=== PATIENT | female | born 1940 | race Caucasian/White ===

== ENCOUNTER 2017-04-28 20:57 | Observation (INO) | payer OTHER, MEDICARE ==
[2017-04-28] MEDS ORDERED: NS 1,000 ML IV ONE (21:06)
[2017-04-28] MEDS ORDERED: IOPAMIDOL (ISOVUE 370) 100 ML BTL IV ONE (21:09)
--- NOTE | 2017-04-28 21:10 | EDPHY ---
H & P Time Seen by Provider: 04/28/17 20:59 HPI/ROS: CHIEF COMPLAINT: TIA HISTORY OF PRESENT ILLNESS: Patient is a 77-year-old female who comes to the emergency department complaining of TIA symptoms. She was with her daughter in the kitchen at 7:40 p.m. when she started to feel funny. Her daughter noticed that her left-sided face was drooping and she had slurred speech. The patient denies having any weakness in her arms or legs. She denies chest pain or shortness of breath. She has no significant past medical history other than mild bradycardia. She does not take any medications. No recent trauma. No recent infectious symptoms. REVIEW OF SYSTEMS: Constitutional: denies: chills, fever, recent illness, recent injury EENTM: denies: blurred vision, double vision, nose congestion Respiratory: denies: cough, shortness of breath Cardiac: denies: chest pain, irregular heart rate, lightheadedness, palpitations Gastrointestinal/Abdominal: denies: abdominal pain, diarrhea, nausea, vomiting, blood streaked stools Genitourinary: denies: dysuria, frequency, hematuria, pain Musculoskeletal: denies: joint pain, muscle pain Skin: denies: lesions, rash, jaundice, bruising Neurological: See HPI Hematologic/Lymphatic: denies: blood clots, easy bleeding, easy bruising Immunologic/allergic: denies: HIV/AIDS, transplant - Physical Exam General Appearance: WD/WN, mild distress Eyes, Ears, Nose, Throat Exam: PERRL/EOMI, normal ENT inspection, pharynx normal Neck: non-tender, full range of motion, supple, normal inspection. No: stiff neck, tender lateral Cardiovascular/Chest: normal peripheral pulses, regular rate, rhythm Respiratory: chest non-tender, lungs clear, normal breath sounds. No: crackles , rhonchi Gastrointestinal/Abdominal: normal bowel sounds, non tender, soft Back Exam: normal inspection Extremity: normal range of motion, non-tender, normal inspection Mental Status: alert, oriented x 3 CN's Exam: normal hearing, normal speech, PERRL, normal eye position, normal gag reflex, normal pupil position, normal speech. No: facial asymmetry, facial droop, facial paresthesias, gaze palsy, tongue deviation to R, tongue deviation to L Coordination/Gait: normal finger to nose, normal gait Motor/Sensory: normal. No: motor deficit, sensory deficit, pronator drift (R), pronator drift (L), weak motor strength RUE, weak motor strength LUE, weak motor strength RLE, weak motor strength LLE NIH stroke score 0 DTR: tricep (R): 2+, tricep (L): 2+, knee (R): 2+, knee (L): 2+ Skin Exam: warm/dry, normal color Lymphatic: no adenopathy Source: Patient Exam Limitations: No limitations - Medical/Surgical History Hx Asthma: No Hx Chronic Respiratory Disease: No Hx Diabetes: No Hx Cardiac Disease: No Hx Renal Disease: No Hx Cirrhosis: No Hx Alcoholism: No Hx HIV/AIDS: No Other PMH: Chronic bradycardia - Family History Significant Family History: No pertinent family hx - Social History Smoking Status: Never smoked Alcohol Use: Sober Drug Use: None Constitutional: Initial Vital Signs Temperature (C) 36.7 C 04/28/17 21:08 Heart Rate 56 L 04/28/17 21:08 Respiratory Rate 15 04/28/17 21:08 Blood Pressure 168/72 H 04/28/17 21:08 O2 Sat (%) 97 04/28/17 21:08 O2 Delivery Mode Room Air Allergies/Adverse Reactions: Sulfa (Sulfonamide Antibiotics) Allergy (Verified 04/29/17 10:43) Itching Home Medications: Medication Instructions Recorded Denosumab [Prolia] 60 mg SQ Q6M 04/28/17 Acetaminophen [Tylenol 325mg (*)] 650 mg PO Q4HRS PRN tab 04/29/17 Aspirin EC [Aspirin EC 81 mg (*)] 81 mg PO DAILY tab 04/29/17 Atorvastatin Calcium [Lipitor 10 10 mg PO DAILY #30 tab 04/29/17 mg (*)] Herbals/Supplements -Info Only 1 ea PO DAILY 04/29/17 Medical Decision Making - Diagnostics Imaging Results: Imaging Impressions Brain MRI 04/28/17 22:48 Impression: Negative. No acute intracranial hemorrhage or ischemia. The study was performed as an emergency on-call case and discussed by telephone with Dr. Garcia at 1:00 AM . The final interpretation is concordant with the original communication. Imaging: Discussed imaging studies w/ weight caller Radiologist ED Course/Re-evaluation: We discussed the CT and lab results. The patient and are reassured. I recommended admission. The patient was ready anxious about this. She is also very anxious about the MRI. helped calm her down and she agreed. I spoke with Dr. Sahu who will admit. Differential Diagnosis: Partial list of the Differential diagnosis considered include but were not limited to; TIA, anxiety, and although unlikely based on the history and physical exam, I also considered infection, dissection, tumor, acute coronary disease. - Data Points Laboratory Results: Laboratory Results 04/28/17 21:06 04/28/17 21:06 Medications Given: Discontinued Medications Aspirin Buffered (Aspirin Ec) 81 mg PO DAILY [facility] Stop: 10/26/17 08:59 Last Admin: 04/29/17 09:35 Dose: 81 mg Atorvastatin Calcium (Lipitor) 40 mg PO DAILY [facility] Stop: 10/26/17 08:59 Last Admin: 04/29/17 09:35 Dose: 40 mg Sodium Chloride (Ns) 1,000 mls @ 0 mls/hr IV ONCE ONE; Wide Open PRN Reason: Protocol Stop: 04/28/17 21:07 Last Admin: 04/28/17 21:21 Dose: 1,000 mls Lorazepam (Ativan) 0.5 - 1 mg PO ONCE PRN PRN Reason: Anxiety Stop: 10/25/17 23:12 Last Admin: 04/28/17 23:24 Dose: 0.5 mg Lorazepam (Ativan Injection) 0.5 mg IVP EDNOW ONE Stop: 04/28/17 23:54 Last Admin: 04/28/17 23:54 Dose: 0.5 mg Departure - Departure Disposition: [facility] Inpatient Acute Clinical Impression: TIA (transient ischemic attack) Qualifiers: Transient cerebral ischemia type: unspecified Qualified Code(s): G45.9 - Transient cerebral ischemic attack, unspecified Condition: Fair
[2017-04-28 21:20] LABS: % IMMATURE GRANULYOCYTES 0.3 % (0.0-1.1); ABSOLUTE IMMATURE GRANULOCYTES 0.02 10^3/uL (0.00-0.10); ADD DIFF? NO; ADD MORPH? NO; ADD SCAN? NO; ATYPICAL LYMPHOCYTE FLAG 10 (0-99); FRAGMENT RBC FLAG 0 (0-99); HEMATOCRIT 42.3 % (38.0-47.0); HEMOGLOBIN 14.4 g/dL (12.6-16.3); LEFT SHIFT FLG 0 (0-99); LIPEMIA HEMOLYSIS FLAG 90 (0-99); MEAN PLATELET VOLUME 9.1 fL (8.7-11.7); PLATELET CLUMPS FLAG 0 (0-99); PLATELET COUNT 185 10^3/uL (150-400); RED CELL DISTRIBUTION WIDTH 11.9 % (11.5-15.2)
[2017-04-28 21:25] LABS: ANION GAP 11 mEq/L (8-16); CALCIUM 9.4 mg/dL (8.5-10.4); CARBON DIOXIDE 25 mEq/l (22-31); CHLORIDE 102 mEq/L (97-110); CREATININE 0.8 mg/dL (0.6-1.0); GLOMERULAR FILTRATION RATE > 60; GLUCOSE 127 mg/dL (70-100); POTASSIUM 3.9 mEq/L (3.5-5.2); SODIUM 138 mEq/L (134-144)
[2017-04-28 21:33] LABS: COLOR YELLOW; LEUKOCYTE ESTERASE,URINE NEGATIVE (NEGATIVE); NITRITE,URINE NEGATIVE (NEGATIVE)
[2017-04-28 21:41] LABS: AMORPHOUS PRESENT /hpf (NONE-1+); MUCUS TRACE /lpf (NONE-1+)
[2017-04-28] MEDS ORDERED: ACETAMINOPHEN 325 MG TAB PO PRN (22:50)
[2017-04-28] MEDS ORDERED: ONDANSETRON 4 MG/2 ML VIAL IVP PRN (22:50)
[2017-04-28] MEDS ORDERED: ONDANSETRON DISINTEGRATING 4 MG TAB PO PRN (22:50)
[2017-04-28] MEDS ORDERED: LORazepam 0.5 MG TAB PO PRN (23:13)
--- NOTE | 2017-04-28 23:28 | PDGENHP ---
History and Physical - Chief Complaint TIA - History of Present Illness 77 yo F w/ osteoporosis presents after episode of confusion and facial droop. Patient was standing in the kitchen around 7:30 PM when she had sudden onset confusion. Per family who was present she exhibited a left facial droop and slurred speech. At this point the called EMS. By the time she had arrived at the ED her symptoms had resolved. She was symptom free with a NIHSS of 0 at the time of my evaluation. History Information - Allergies/Home Medication List Allergies/Adverse Reactions: Sulfa (Sulfonamide Antibiotics) Allergy (Verified 04/28/17 21:10) Home Medications: Prolia 04/28/17 [Last Taken Unknown] I have personally reviewed and updated: family history, medical history - Past Medical History osteoporosis - Family History Positive for: cancer - Social History Smoking Status: Never smoked Alcohol Use: Sober Drug Use: None Review of Systems Review of Systems: ROS: 10pt was reviewed & negative except for what was stated in HPI & below Physical Exam Physical Exam: Temp Pulse Resp BP Pulse Ox 36.7 C 52 L 16 155/62 H 95 04/28/17 21:08 04/28/17 23:21 04/28/17 23:21 04/28/17 23:21 04/28/17 23:21 Constitutional: no apparent distress, not in pain Eyes: PERRL, EOMI Ears, Nose, Mouth, Throat: moist mucous membranes, no oral mucosal ulcers Cardiovascular: regular rate and rhythym, no murmur, rub, or gallop Respiratory: no respiratory distress, no rales or rhonchi Gastrointestinal: normoactive bowel sounds, soft, non-tender abdomen Skin: warm, normal color Musculoskeletal: full muscle strength, no muscle tenderness Neurologic: AAOx3, sensation intact bilaterally, CN II-XII Intact, other (NIHSS 0), No weakness, No numbness, No pronator drift, No facial droop Psychiatric: interacting appropriately, not anxious Lab Data & Imaging Review 04/28/17 21:06 04/28/17 21:06 WBC 6.06 10^3/uL (3.80-9.50) 04/28/17 21:06 RBC 4.50 10^6/uL (4.18-5.33) 04/28/17 21:06 Hgb 14.4 g/dL (12.6-16.3) 04/28/17 21:06 Hct 42.3 % (38.0-47.0) 04/28/17 21:06 MCV 94.0 fL (81.5-99.8) 04/28/17 21:06 MCH 32.0 pg (27.9-34.1) 04/28/17 21:06 MCHC 34.0 g/dL (32.4-36.7) 04/28/17 21:06 RDW 11.9 % (11.5-15.2) 04/28/17 21:06 Plt Count 185 10^3/uL (150-400) 04/28/17 21:06 MPV 9.1 fL (8.7-11.7) 04/28/17 21:06 Neut % (Auto) 43.4 % (39.3-74.2) 04/28/17 21:06 Lymph % (Auto) 43.6 % (15.0-45.0) 04/28/17 21:06 [place] % (Auto) 8.6 % (4.5-13.0) 04/28/17 21:06 Eos % (Auto) 3.8 % (0.6-7.6) 04/28/17 21:06 Baso % (Auto) 0.3 % (0.3-1.7) 04/28/17 21:06 Nucleat RBC Rel Count 0.0 % (0.0-0.2) 04/28/17 21:06 Absolute Neuts (auto) 2.63 10^3/uL (1.70-6.50) 04/28/17 21:06 Absolute Lymphs (auto) 2.64 10^3/uL (1.00-3.00) 04/28/17 21:06 Absolute Monos (auto) 0.52 10^3/uL (0.30-0.80) 04/28/17 21:06 Absolute Eos (auto) 0.23 10^3/uL (0.03-0.40) 04/28/17 21:06 Absolute Basos (auto) 0.02 10^3/uL (0.02-0.10) 04/28/17 21:06 Absolute Nucleated RBC 0.00 10^3/uL (0-0.01) 11/22/17 21:06 Immature Gran % 0.3 % (0.0-1.1) 04/28/17 21:06 Immature Gran # 0.02 10^3/uL (0.00-0.10) 04/28/17 21:06 Sodium 138 mEq/L (134-144) 04/28/17 21:06 Potassium 3.9 mEq/L (3.5-5.2) 04/28/17 21:06 Chloride 102 mEq/L (97-110) 04/28/17 21:06 Carbon Dioxide 25 mEq/l (22-31) 04/28/17 21:06 Anion Gap 11 mEq/L (8-16) 04/28/17 21:06 BUN 21 mg/dL (7-23) 04/28/17 21:06 Creatinine 0.8 mg/dL (0.6-1.0) 04/28/17 21:06 Estimated GFR > 60 04/28/17 21:06 Glucose 127 mg/dL (70-100) H 04/28/17 21:06 Calcium 9.4 mg/dL (8.5-10.4) 04/28/17 21:06 Urine Color YELLOW 04/28/17 21:23 Urine Appearance MODERATELY TURBID 04/28/17 21:23 Urine pH 6.0 (5.0-7.5) 04/28/17 21:23 Ur Specific [place] 1.023 (1.002-1.030) 04/28/17 21:23 Urine Protein NEGATIVE (NEGATIVE) 04/28/17 21:23 Urine Ketones NEGATIVE (NEGATIVE) 04/28/17 21: Urine Blood NEGATIVE (NEGATIVE) 04/28/17 21:23 Urine Nitrate NEGATIVE (NEGATIVE) 04/28/17 21:23 Urine Bilirubin NEGATIVE (NEGATIVE) 04/28/17 21:23 Urine Urobilinogen NEGATIVE EU (0.2-1.0) 04/28/17 21:23 Ur Leukocyte Esterase NEGATIVE (NEGATIVE) 04/28/17 21:23 Urine RBC 3-5 /hpf (0-3) H 04/28/17 21:23 Urine WBC 1-3 /hpf (0-3) 04/28/17 21:23 Ur Epithelial Cells NONE SEEN /lpf (NONE-1+) 04/28/17 21:23 Amorphous Sediment PRESENT /hpf (NONE-1+) 04/28/17 21:23 Urine Mucus TRACE /lpf (NONE-1+) 04/28/17 21:23 Urine Glucose NEGATIVE (NEGATIVE) 04/28/17 21:23 Imaging Review: Per discussion with ED physician CT head and CTA head/neck without clear abnormality. There was some concern about possible FMD involving ICA's but suggested to wait for final read prior to conclusion. Assessment & Plan Assessment: 77 yo F w/ osteoporosis presents after TIA. Plan: 1. TIA - Transient left facial droop and slurred speech noted around 7:30 PM; resolved with one hour. NIHSS 0 upon arrival without clear acute findings on head and neck imaging. Per discussion with ED physician radiology concerned about possible FMD involving ICA's but suggested to await final read prior to drawing firm conclusions. - S/p CT head, CTA head/neck - Obtain MRI brain w/o, TTE w/ bubble - Monitor on telemetry - Check lipid panel and A1c - Will start ASA 81 mg qD and Atorvastatin 40 mg qD for secondary prevention - Neurology consult placed 2. Osteoporosis - On Prolia as outpatient Diet - Regular Code - Full Ppx - SCDs Dispo - Admit to observation status
[2017-04-28] MEDS ORDERED: LORazepam 2 MG/ML INJ ONE (23:51)
[2017-04-28] MEDS ORDERED: LORazepam 2 MG/ML INJ IVP ONE (23:53)
[2017-04-29 04:49] LABS: % IMMATURE GRANULYOCYTES 0.3 % (0.0-1.1); ABSOLUTE IMMATURE GRANULOCYTES 0.02 10^3/uL (0.00-0.10); ADD DIFF? NO; ADD MORPH? NO; ADD SCAN? NO; ATYPICAL LYMPHOCYTE FLAG 10 (0-99); FRAGMENT RBC FLAG 0 (0-99); LEFT SHIFT FLG 0 (0-99); LIPEMIA HEMOLYSIS FLAG 90 (0-99); MEAN CELL HEMOGLOBIN CONCENTR. 34.2 g/dL (32.4-36.7); MEAN CELL VOLUME 93.6 fL (81.5-99.8); MEAN PLATELET VOLUME 9.1 fL (8.7-11.7); PLATELET CLUMPS FLAG 0 (0-99); PLATELET COUNT 159 10^3/uL (150-400); RED BLOOD CELL COUNT 4.06 10^6/uL (4.18-5.33); RED CELL DISTRIBUTION WIDTH 11.8 % (11.5-15.2)
[2017-04-29 05:12] LABS: ANION GAP 7 mEq/L (8-16); CALCIUM 8.5 mg/dL (8.5-10.4); CARBON DIOXIDE 28 mEq/l (22-31); CHLORIDE 107 mEq/L (97-110); CHOLESTEROL 168 mg/dL (140-220); CHOLESTEROL/HDL RATIO 2.21 RATIO (1.00-4.44); CREATININE 0.7 mg/dL (0.6-1.0); GLOMERULAR FILTRATION RATE > 60; GLUCOSE 81 mg/dL (70-100); HIGH DENSITY LIPOPROTEIN 76 mg/dL (40-85); LDL/HDL RATIO 0.95 RATIO (1.00-3.22); LOW DENSITY LIPOPROTEIN 72 mg/dL (80-100); NON-HIGH DENSITY LIPOPROTEIN 92 mg/dL (90-129); POTASSIUM 3.8 mEq/L (3.5-5.2); SODIUM 142 mEq/L (134-144); TRIGLYCERIDE 104 mg/dL (35-135); VERY LOW DENSITY LIPOPROTEINS 20 mg/dL (8-25)
[2017-04-29 08:17] VITALS: BP 128/72; PULSE 56; RESP 12; O2SAT 94
[2017-04-29 08:19] VITALS: TEMP 98.5
[2017-04-29] MEDS ORDERED: ATORVASTATIN CALCIUM 40 MG TAB PO SCH (09:00)
[2017-04-29] MEDS ORDERED: ASPIRIN EC 81 MG TAB PO SCH (09:00)
[2017-04-29] MEDS ORDERED: NON-FORMULARY NEW DRUG (Denosumab [Prolia] 60 MG) SQ SCH (10:30)
--- NOTE | 2017-04-29 11:08 | ECHO ---
[email or web address] [address] [address] Main: [phone] Fax: [email or web address] Echocardiogram Name: EDGAR FAYE MR#: [id number] Study Date: 04/29/2017 Study Time: 08:32 AM Date of : 1940 Age: 77 year(s) Height: 162.6 cm (64 in.) Weight: 52.16 kg (115 lb.) BSA: 1.55 m2 Gender: Female Examination: Echo Indication: TIA Image Quality: Contrast: Requested by: Quincy Albarado BP: 128 mmHg/72 mmHg Heart Rate: Rhythm: Indication: TIA Procedure Staff Electromyographic Technician: Reading Physician: Jose Alfredo Kerr Requesting Provider: Conclusions: Normal size left ventricle. No LV hypertrophy. Normal global systolic LV function. EF is 71 %. No regional wall motion abnormality. An agitated saline study was performed and was negative for intracardiac shunting. Mild mitral valve regurgitation is present. Trivial tricuspid valve regurgitation. No pericardial effusion. Measurements: Chambers Valvular Assessment AV/MV Valvular Assessment TV/PV Normal Normal Normal Name Value Range Name Value Range Name Value Range Ao Kimberlyn (MM): 2.8 cm (2.2 cm-3.7 AV meanP mmHg ( - ) TR Vmax: 2.42 mm/s ( - ) cm) MV E Vmax: 0.70 m/s ( - ) TR PGmax: 23 mmHg ( - ) IVSd (2D): 0.7 cm (0.6 cm-1.1 MV A Vmax: 0.70 m/s ( - ) syst. PAP: 28 mmHg ( - ) cm) MV E/A: 1.00 ( - ) LVDd (2D): 4.2 cm (3.9 cm-5.3 cm) LVDs (2D): 2.1 cm (2.1 cm-4 cm) LVPWd (2D): 0.8 cm ( - ) LVEF (MOD4): 71 % (>=55 %) Continued Measurements: Chambers Valvular Assessment AV/MV Valvular Assessment TV/PV Name Value Name Value Name Value Patient: EDGAR FAYE Study Date: 04/29/2017 Page 1 of 2 08:32 AM LADs: 2.7 cm MV E' Septal: 0.06 m/s CVP (est.): 5 mmHg LADs Lon.8 cm MV E/E' Septal: 11.40 LA Area: 15.2 cm2 MV E/E' Lateral: 9.30 Findings: Left Ventricle: Normal size left ventricle. No LV hypertrophy. Normal global systolic LV function. EF is 71 %. No regional wall motion abnormality. Right Ventricle: Normal size right ventricle. Left Atrium: The left atrium is normal in size. An agitated saline study was performed and was negative for intracardiac shunting. Right Atrium: The right atrium is normal in size. Mitral Valve: The mitral valve is normal in appearance and function. Mild mitral valve regurgitation is present. Aortic Valve: The aortic valve is normal in appearance and function. Tricuspid Valve: The tricuspid valve is normal in appearance and function. Trivial tricuspid valve regurgitation. Pulmonic Valve: The pulmonic valve is normal in appearance and function. Aorta: The aorta is normal. Pericardium: No pericardial effusion. (No Signature Object) Patient: EDGAR FAYE Study Date: 04/29/2017 Page 2 of 2 08:32 AM [id number]
--- NOTE | 2017-04-29 13:14 | GCON ---
[f rep st] CONSULTATION NEUROLOGY CONSULT DATE OF CONSULTATION: 04/29/2017 REFERRING PHYSICIAN: Quincy Sultana MD CHIEF COMPLAINT: Left facial droop. HISTORY OF PRESENT ILLNESS: The patient is a very pleasant 77-year-old lady from the [place], [place] area with a past medical history including osteoporosis. The only medication she takes on a prescription basis is for osteoporosis. She also has apparent history of physiologic bradycardia that has been present in other family members, monitored by a hris coordinator in [place]. The patient admits that she has been dehydrated for the last 3 days since being in [place] and went on a 2-mile hike yesterday that had some uphill. Around 7:30 p.m., her son-in-law had poured her a glass of wine. She had taken 2 or 3 sips in a standing position when she suddenly felt vertigo as if the room was moving and felt dizzy as if she may pass out. Her family noticed and they sat her down. In this setting, she had around 30 seconds of left facial droop and slurred words. After the 30 seconds, the facial droop and slurred words resolved. She was then taken to a bedroom and put into a supine position and they lifted her legs. She started feeling better but did not have a normal color. EMS was activated and gave her IV fluids, which brought her color back to normal, and she was completely asymptomatic before she even came to the emergency department. She had a full evaluation for TIA, stroke in our ER. The angiography of the head and neck suggested some subtle beading of the cervical ICAs bilaterally more than what is typically seen in the general population. Therefore, there was a suggestion of possible fibromuscular dysplasia. Head CT done in the ER showed no acute findings. She had an MRI of brain last night which showed no acute infarct. She has some age-related changes. Echocardiogram done last night as well showed a normal ejection fraction of 71%. The left atrium is normal in size. There was no shunting noted with agitated saline. She has remained asymptomatic and done well overnight. REVIEW OF SYSTEMS: A 10-point review of systems was done and only pertinent to the HPI. For past medical history, social history, family history, home medications, allergies, please see Dr. Sultana's history and physical. PHYSICAL EXAMINATION: VITAL SIGNS: Blood pressure 116/55, heart rate 60, temperature 36.7. GENERAL: In no acute distress. A very pleasant lady. HIGHER MENTAL FUNCTION: She is awake, alert. Names 5/5. Follows commands 5/ 5. Repeats 5/5. No aphasia. CRANIAL NERVES: Normal 2-7, 11, and 12. MOTOR: She has normal strength and tone throughout. No weakness. SENSORY: Normal to light touch in all 4 extremities. COORDINATION: Normal [id number] and [id number] bilaterally. GAIT: Normal. She is steady, no ataxia. IMPRESSION AND PLAN: 1. Transient ischemic attack. My overall impression is that the patient may have had a global hypoperfusion type event in the setting of dehydration and physiologic bradycardia with focal features for around 30 seconds as evidenced by her left facial droop and dysarthria. She certainly may have a vessel in the right hemisphere that is more sensitive to low cerebral perfusion pressure causing the focality. However , we should complete the entire transient ischemic attack workup. This includes having outpatient electrocardiogram monitoring, either a 30-day or implantable loop recorder, to screen for paroxysmal atrial fibrillation. She has had no atrial fibrillation while here in the hospital. She has a hris coordinator in [place] who can do this. I have written down all of this information for the patient. We also discussed the fibromuscular dysplasia that may be present on angiography of the head and neck. She will start a baby aspirin daily along with low-dose statin with close followup with her primary care physician and hris coordinator in [place]. She will stay well hydrated as well. She will likely discharge later today. No further recommendations. Thank you for this consultation. We will follow up as needed. Please do not hesitate to call if there are any changes in her neurologic status or further questions. Seventy total minutes floor time today reviewing MRI images, angiography, history, and direct counseling with the patient, along with coordination of care. /[id number]/MODL MTDD
--- NOTE | 2017-04-29 13:32 | ASMTCMCOM ---
CM Note CM Note Notes: Pt admitted with TIA. She is visiting family from [place]. Discharging today with no CM needs. She will follow up with her dyed raw stock blower feeder in [place]. Date Signed: 04/29/2017 01:31 PM Electronically Signed By:PRITESH Pace
--- NOTE | 2017-04-29 13:40 | GDS ---
[f rep st] DISCHARGE SUMMARY DISCHARGE DIAGNOSIS: Transient ischemic attack. CONSULTATIONS: Dr. Edmundo Montilla. STUDIES AND PROCEDURES DONE: 1. CT angio of the head and neck. 2. CT of the head. 3. MRI of the brain. 4. Echocardiogram. PHYSICAL EXAM: GENERAL: The patient is alert. VITAL SIGNS: Afebrile at 36.9, pulse is 56, respira tory rate 12, blood pressure is 128/72. She is saturating 94% on room air. I have seen and evaluated the patient on the day of discharge. HOSPITAL COURSE: The patient is a 77-year-old female who presented to the emergency room with compla ints of facial droop. She was evaluated and diagnosed with transient ischemic attack. During this h ospitalization, the patient's symptoms have completely resolved. She did receive a consultation from Neurology. An MRI of the brain as well as CT angio of the neck and head were performed. During tho se studies, it was noted that the patient may have an area of fibromuscular dysplasia, but she will f ollow up in the outpatient setting. It was felt that the patient had a global hypoperfusion event in the setting of dehydration and bradycardia. It was recommended that she follow up with her cardiolo gist at home in [place] for a 30day cardiac monitoring. She has had no signs of atrial fibrillation dur ing this hospitalization while on telemetry monitoring. She has been started on a baby aspirin as we ll as a low-dose statin Lipitor. The patient's LDL is 72. She will follow up with her primary care physician and transit planner in [place]. She will stay hydrated and will be discharged home. There are n o pending studies. DISCHARGE MEDICATIONS: Please refer to EMR form. The patient has been provided a prescription for L ipitor 10 mg daily. I have not adjusted any of the patient's previously prescribed home medications to the best of my knowledge. I reviewed the patient's disposition with Dr. Edmundo Montilla, who is in agreement with the plan. /[id number]/MODL
--- NOTE | 2017-04-29 14:34 | ASDISCHSUM ---
Discharge Information Plan Status:Home with No Needs Medically Cleared to Leave:04/28/2017 Discharge Date:04/29/2017 01:56 PM CM D/C Disposition:Home, Routine, Self-Care ADT D/C Disposition:Home, Routine, Self-Care Projected Discharge Date:04/29/2017 01:56 PM Transportation at D/C:Family Discharge Delay Reason: Follow-Up Date:04/29/2017 01:56 PM Discharge Slot: Final Diagnosis: Placement Information Patient Contact Information Contact Name:LOCO Relationship: Address:[address] Work Phone: City:[place] Alternate Phone: [facility]/Zip Code:[place] [address] Email: Financial Information Financial Class: Primary Plan Desc:MEDICARE OUTPATIENT Primary Plan Number:[id number] Secondary Plan Desc:ERIS/FAWN SUPPLEMENT Secondary Plan Number:[id number] Assessment Information [facility] CM Progress Note CM Note CM Note Notes: Pt admitted with TIA. She is visiting family from [place]. Discharging today with no CM needs. She will follow up with her health sciences program coordinator in [place]. Date Signed: 04/29/2017 01:31 PM Electronically Signed By:PRITESH Pace Case Management Discharge Plan Note Case Management Discharge Discharge Order Complete? Answers: Yes Patient to Obtain Answers: via Family Medications Transportation Arranged Answers: Family/Friends Transport will Pick (Date 04/29/2017 12:00 AM & Time) Family Notified Answers: Yes Date Signed: 04/29/2017 01:32 PM Electronically Signed By:PRITESH Pace Intervention Information
[2017-04-30] MEDS ORDERED: Herbals/Supplements -Info Only PO SCH (09:00)
[2017-04-30 10:47] LABS: HEMOGLOBIN A1C 5.4 % (4.0-6.0)
== END 2017-04-29 13:56 | disposition home or self-care (01) ==
LOC: F3N 04-29 00:47
PROVIDERS: ADMIT Student in an Organized Health Care Education/Training Program; ATTEND Hospitalist
DX: G45.9 Transient cerebral ischemic attack, unspecified (principal); R00.1 Bradycardia, unspecified; E86.0 Dehydration; R93.0 Abnormal findings on diagnostic imaging of skull and head, not elsewhere classified; R29.700 NIHSS score 0; M81.0 Age-related osteoporosis without current pathological fracture; Z88.2 Allergy status to sulfonamides
CPT/HCPCS: 70450; 70496; 70498; 70551; 92523; 93306; G0378; G8999; G9158; G9186; J2060; Q9967; 82947-QW